=== PATIENT | male | born 1935 | race Caucasian/White ===

== ENCOUNTER 2021-06-27 12:46 | Outpatient (CLI) | payer MEDICARE ==
[~2021-06-27 12:46] MED LIST: ASPI-12 PO; BIMA2.5D4 EACHEYE; CLOP75TA34 PO; EZET1TAB41 PO; HYDR25TA5 PO; METO-539 PO; PANT40TA39 PO
[2021-06-27] MEDS ORDERED: BARIUM SULFATE 340 ML SUSP.RECON***PROCEDURE AREA ONLY**DONT ENTER PO ONE (15:30)
== END 2021-06-27 23:59 | disposition home or self-care (01) ==
LOC: RAD 12:46
DX: R13.14 Dysphagia, pharyngoesophageal phase (principal); R13.11 Dysphagia, oral phase; K21.9 Gastro-esophageal reflux disease without esophagitis
CPT/HCPCS: 74230